=== PATIENT | female | born 1965 | race Caucasian/White ===

== ENCOUNTER 2016-11-20 11:31 | Emergency (ER) | payer MEDICARE, OTHER | END 2016-11-20 13:13 | disposition home or self-care (01) | LOC: FER 11:31 | DX: J20.9 Acute bronchitis, unspecified (principal); R19.7 Diarrhea, unspecified; I10 Essential (primary) hypertension; Z79.899 Other long term (current) drug therapy; Z88.6 Allergy status to analgesic agent; Z87.891 Personal history of nicotine dependence | CPT/HCPCS: 71020; 94640 ==

== ENCOUNTER 2017-02-10 18:36 | Emergency (ER) | payer MEDICARE, OTHER | END 2017-02-10 19:59 | disposition home or self-care (01) | LOC: FER 18:36 | DX: M25.551 Pain in right hip (principal); M25.561 Pain in right knee; I10 Essential (primary) hypertension; Z88.6 Allergy status to analgesic agent; Z79.899 Other long term (current) drug therapy; W19.XXXA Unspecified fall, initial encounter | CPT/HCPCS: 73502; 73564; 99283 ==